=== PATIENT | male | born 1970 | race African-American/Black ===

== ENCOUNTER 2022-06-20 10:59 | Day surgery (SDC) | payer BC, OTHER ==
[2022-06-12 14:50] VITALS: BMI 33.9
[2022-06-20 11:58] VITALS: RESP 18
[2022-06-20] MEDS ORDERED: PROPOFOL 40 ML ONE (12:32)
[2022-06-20 13:09] VITALS: TEMP 97.6
[2022-06-20 13:22] VITALS: BP 127/63; PULSE 83
== END 2022-06-20 13:33 | disposition home or self-care (01) ==
LOC: FASU-ENDO 10:59
PROVIDERS: ATTEND Internal Medicine Gastroenterology
PROC: 0DBK8ZX Excision of Ascending Colon, Via Natural or Artificial Opening Endoscopic, Diagnostic (ICD-10-PCS; principal; 2022-06-20 12:43)
DX: Z12.11 Encounter for screening for malignant neoplasm of colon (principal); K63.5 Polyp of colon; K64.1 Second degree hemorrhoids
CPT/HCPCS: 88305-TC